=== PATIENT | male | born 1980 | race Caucasian/White ===

== ENCOUNTER 2018-07-03 13:59 | Emergency (ER) | payer SELFPAY ==
[~2018-07-03] VITALS: Ht 182.9 cm; Wt 82.6 kg
[2018-07-03 16:05] LABS: BASO % 1 % (0-3); EOS # 0.1 x10^3/uL (0.0-0.7); EOS % 1 % (0-3); HEMATOCRIT 38.7 % (39.0-53.0); HEMOGLOBIN 13.4 g/dL (13.0-17.5); LYMPH # 0.8 x10^3/uL (1.0-4.8); LYMPH % 13 % (24-48); MEAN CORPUSCULAR HEMOGLOBIN 35 pg (25-35); MEAN CORPUSCULAR HGB CONC 35 g/dL (31-37); MEAN CORPUSCULAR VOLUME 100 fL (79-100); MONO # 0.8 x10^3/uL (0.0-1.1); MONO % 12 % (0-9); NEUT # 4.8 x10^3uL (1.8-7.7); NEUT % 73 % (31-73); PLATELET COUNT 91 x10^3/uL (140-400); RED BLOOD COUNT 3.86 x10^6/uL (4.30-5.70); WHITE BLOOD COUNT 6.6 x10^3/uL (4.0-11.0)
--- NOTE | 2018-07-03 16:10 | EKG ---
[facility] [address] [place] [address] Test Date: 2018-07-03 Test Time: 15:44:50 Pat Name: SERAFIN SHOEMAKER Department: Room: Gender: M [employer]: [id number] : 1980 Requested By: RAMSEY DOHERTY Order Number: [id number] Reading MD: Ryan Romeo Measurements Intervals [place] Rate: 91 P: 71 ND: 170 QRS: 34 QRSD: 90 T: 52 QT: 320 QTc: 400 Interpretive Statements SINUS RHYTHM LEFT ATRIAL ABNORMALITY LOW LIMB LEAD VOLTAGE ABNORMAL ECG RI6.01 No previous ECG available for comparison Electronically Signed On 07-07-2018 12:00:59 CDT by Ryan Romeo
[2018-07-03 16:15] LABS: CALCIUM 10.1 mg/dL (8.5-10.1); GFR 82.8; POTASSIUM 3.8 mmol/L (3.5-5.1)
[2018-07-03 16:17] LABS: BILIRUBIN,URINE SMALL (NEG); CLARITY,URINE CLEAR; NITRITE,URINE NEGATIVE (NEG); PROTEIN,URINE 30 mg/dL (NEG-TRACE)
[2018-07-03 16:22] LABS: ALBUMIN 4.3 g/dL (3.4-5.0); ALBUMIN/GLOBULIN RATIO 1.2 (1.0-1.7); MAGNESIUM 1.7 mg/dL (1.8-2.4); TOTAL BILIRUBIN 1.4 mg/dL (0.2-1.0)
[2018-07-03 16:24] LABS: BARBITURATES NEG (NEG); BENZODIAZEPINES NEG (NEG); CANNABINOIDS NEG (NEG); COCAINE NEG (NEG); METHADONE NEG (NEG); OPIATES NEG (NEG); PHENCYCLIDINE NEG (NEG)
[2018-07-03 16:26] LABS: BACTERIA,URINE 0 /HPF (0-FEW); COLOR,URINE DK YELLOW; HYALINE CASTS, URINE OCCASIONAL /HPF; RBC,URINE 0 /HPF (0-2); SQUAMOUS EPITHELIAL CELL,UR FEW /LPF; WBC,URINE 0 /HPF (0-4)
[2018-07-03 16:27] LABS: AMPHETAMINE/METHAMPHETAMINE NEG (NEG)
--- NOTE | 2018-07-03 16:27 | RAD ---
CT head without intravenous contrast History: Seizure-like activity. Comparison: None. Technique: Axial images are obtained of the head from the skull base through the vertex without IV contrast. Exposure: One or more of the following individualized dose reduction techniques were utilized for this examination: 1. Automated exposure control 2. Adjustment of the mA and/or kV according to patient size 3. Use of iterative reconstruction technique Findings: There is motion artifact at multiple levels which could obscure subtle abnormalities. There is mild diffuse cerebral volume loss, greater than expected for patient age. No obvious intracranial mass, mass-effect, midline shift, hemorrhage or obvious acute infarction is identified. Basilar cisterns are patent. Bone windows demonstrate no acute calvarial abnormality. The visualized paranasal sinuses appear clear. Impression: 1. No acute intracranial process. Please note that CT can be relatively insensitive to acute ischemic infarction for up to 24 hours after symptom onset. 2. Mild diffuse cerebral volume loss, greater than expected for patient age. Electronically signed by: Mal Aburto MD (07/03/2018 4:24 PM) [facility]
--- NOTE | 2018-07-03 17:11 | PHYS DOC ---
Past Medical History Past Medical History: No Pertinent History Past Surgical History: Other Additional Past Surgical Histo: "food stuck in esophagus removed" Alcohol Use: Occasionally Drug Use: None Adult General Chief Complaint Chief Complaint: SEIZURE HPI HPI Patient is a 38 year old [f__sex] who presents with [] Review of Systems Review of Systems Constitutional: Denies fever or chills [] Eyes: Denies change in visual acuity, redness, or eye pain [] HENT: Denies nasal congestion or sore throat [] Respiratory: Denies cough or shortness of breath [] Cardiovascular: No additional information not addressed in HPI [] GI: Denies abdominal pain, nausea, vomiting, bloody stools or diarrhea [] : Denies dysuria or hematuria [] Musculoskeletal: Denies back pain or joint pain [] Integument: Denies rash or skin lesions [] Neurologic: Denies headache, focal weakness or sensory changes [] Endocrine: Denies polyuria or polydipsia [] All other systems were reviewed and found to be within normal limits, except as documented in this note. Current Medications Current Medications Current Medications Medications (Trade) Dose Ordered Sig/Alejandro Start Time Stop Time Status Last Admin Dose Admin Lorazepam (Ativan) 1 mg 1X ONCE 07/03/18 17:30 07/03/18 17:31 DC Multivitamins/ Minerals (I-Jessica) 1 tab DAILY 07/04/18 09:00 Sodium Chloride 1,000 ml @ 1,000 mls/hr 1X ONCE 07/03/18 17:15 07/03/18 18:14 Thiamine Mononitrate (Vitamin B-1) 100 mg DAILY 07/04/18 09:00 Allergies Allergies Allergies Coded Allergies Type Severity Reaction Last Updated Verified No Known Drug Allergies 08/07/14 No Physical Exam Physical Exam Constitutional: Well developed, well nourished, no acute distress, non-toxic appearance. [] HENT: Normocephalic, atraumatic, bilateral external ears normal, oropharynx moist, no oral exudates, nose normal. [] Eyes: PERRLA, EOMI, conjunctiva normal, no discharge. [] Neck: Normal range of motion, no tenderness, supple, no stridor. [] Cardiovascular:Heart rate regular rhythm, no murmur [] Lungs & Thorax: Bilateral breath sounds clear to auscultation [] Abdomen: Bowel sounds normal, soft, no tenderness, no masses, no pulsatile masses. [] Skin: Warm, dry, no erythema, no rash. [] Back: No tenderness, no CVA tenderness. [] Extremities: No tenderness, no cyanosis, no clubbing, ROM intact, no edema. [] Neurologic: Alert and oriented X 3, normal motor function, normal sensory function, no focal deficits noted. [] Psychologic: Affect normal, judgement normal, mood normal. [] Current Patient Data Vital Signs Vital Signs Date Time Temp Pulse Resp B/P (MAP) Pulse Ox O2 Delivery O2 Flow Rate FiO2 07/03/18 16:43 90 20 99 07/03/18 15:07 98.7 171/97 (121) Room Air 98.7 Lab Values Laboratory Tests Test 07/03/18 15:14 07/03/18 16:07 White Blood Count 6.6 x10^3/uL (4.0-11.0) Red Blood Count 3.86 x10^6/uL (4.30-5.70) L Hemoglobin 13.4 g/dL (13.0-17.5) Hematocrit 38.7 % (39.0-53.0) L Mean Corpuscular Volume 100 fL (79-100) Mean Corpuscular Hemoglobin 35 pg (25-35) Mean Corpuscular Hemoglobin Concent 35 g/dL (31-37) Red Cell Distribution Width 14.0 % (11.5-14.5) Platelet Count 91 x10^3/uL (140-400) L Neutrophils (%) (Auto) 73 % (31-73) Lymphocytes (%) (Auto) 13 % (24-48) L Monocytes (%) (Auto) 12 % (0-9) H Eosinophils (%) (Auto) 1 % (0-3) Basophils (%) (Auto) 1 % (0-3) Neutrophils # (Auto) 4.8 x10^3uL (1.8-7.7) Lymphocytes # (Auto) 0.8 x10^3/uL (1.0-4.8) L Monocytes # (Auto) 0.8 x10^3/uL (0.0-1.1) Eosinophils # (Auto) 0.1 x10^3/uL (0.0-0.7) Basophils # (Auto) 0.0 x10^3/uL (0.0-0.2) Sodium Level 137 mmol/L (136-145) Potassium Level 3.8 mmol/L (3.5-5.1) Chloride Level 97 mmol/L (98-107) L Carbon Dioxide Level 24 mmol/L (21-32) Anion Gap 16 (6-14) H Blood Urea Nitrogen 10 mg/dL (8-26) Creatinine 1.0 mg/dL (0.7-1.3) Estimated GFR (Cockcroft-Gault) 82.8 BUN/Creatinine Ratio 10 (6-20) Glucose Level 139 mg/dL (70-99) H Calcium Level 10.1 mg/dL (8.5-10.1) Magnesium Level 1.7 mg/dL (1.8-2.4) L Total Bilirubin 1.4 mg/dL (0.2-1.0) H Aspartate Amino Transferase (AST) 107 U/L (15-37) H Alanine Aminotransferase (ALT) 88 U/L (16-63) H Alkaline Phosphatase 109 U/L (46-116) Troponin I Quantitative < 0.017 ng/mL (0.000-0.055) Total Protein 8.0 g/dL (6.4-8.2) Albumin 4.3 g/dL (3.4-5.0) Albumin/Globulin Ratio 1.2 (1.0-1.7) Ethyl Alcohol Level < 10 mg/dL (0-10) Urine Collection Type Unknown Urine Color Dk yellow Urine Clarity Clear Urine pH 6.0 Urine Specific [place] 1.020 Urine Protein 30 mg/dL (NEG-TRACE) Urine Glucose (UA) 100 mg/dL (NEG) Urine Ketones (Stick) 40 mg/dL (NEG) Urine Blood Negative (NEG) Urine Nitrite Negative (NEG) Urine Bilirubin Small (NEG) Urine Urobilinogen Dipstick 1.0 mg/dL (0.2 mg/dL) Urine Leukocyte Esterase Negative (NEG) Urine RBC 0 /HPF (0-2) Urine WBC 0 /HPF (0-4) Urine Squamous Epithelial Cells Few /LPF Urine Bacteria 0 /HPF (0-FEW) Urine Hyaline Casts Occasional /HPF Urine Mucus Mod /LPF Urine Opiates Screen Neg (NEG) Urine Methadone Screen Neg (NEG) Urine Barbiturates Neg (NEG) Urine Phencyclidine Screen Neg (NEG) Urine Amphetamine/Methamphetamine Neg (NEG) Urine Benzodiazepines Screen Neg (NEG) Urine Cocaine Screen Neg (NEG) Urine Cannabinoids Screen Neg (NEG) Urine Ethyl Alcohol Pos (NEG) Laboratory Tests 07/03/18 15:14 Laboratory Tests 07/03/18 15:14 EKG EKG [] Radiology/Procedures Radiology/Procedures PROCEDURE: CT HEAD WO CONTRAST CT head without intravenous contrast History: Seizure-like activity. Comparison: None. Technique: Axial images are obtained of the head from the skull base through the vertex without IV contrast. Exposure: One or more of the following individualized dose reduction techniques were utilized for this examination: 1. Automated exposure control 2. Adjustment of the mA and/or kV according to patient size 3. Use of iterative reconstruction technique Findings: There is motion artifact at multiple levels which could obscure subtle abnormalities. There is mild diffuse cerebral volume loss, greater than expected for patient age. No obvious intracranial mass, mass-effect, midline shift, hemorrhage or obvious acute infarction is identified. Basilar cisterns are patent. Bone windows demonstrate no acute calvarial abnormality. The visualized paranasal sinuses appear clear. Impression: 1. No acute intracranial process. Please note that CT can be relatively insensitive to acute ischemic infarction for up to 24 hours after symptom onset. 2. Mild diffuse cerebral volume loss, greater than expected for patient age. Electronically signed by: Mal Aburto MD (07/03/2018 4:24 PM) [facility] DICTATED and SIGNED BY: MAL ABURTO MD DATE: 07/03/18 1623 Course & Med Decision Making Course & Med Decision Making Pertinent Labs and Imaging studies reviewed. (See chart for details) 1720: In-depth conversation had with patient and his father regarding test results. No acute findings on head CT. Discussed elevated LFTs and patient's heavy drinking history. Offered admission for further monitoring with uncertainty if pt had seizure vs syncope episode. Pt is A&Ox3 and neuro intact with no complaints- visibly he has some tremors but he reports that is NL for him. After discussion pt is requesting home discharge- will provide PO thiamine and multi vitamin with IV fld bolus/dose of Ativan. Will provide pt with outpt options for detox. Dragon Disclaimer Dragon Disclaimer This electronic medical record was generated, in whole or in part, using a voice recognition dictation system. Departure Departure Impression: Primary Impression: Episode of syncope Additional Impression: Alcohol abuse Disposition: 01 HOME, SELF-CARE Condition: STABLE Referrals: EFFIE DAWKINS MD (PCP) Patient Instructions: Alcohol Problems, Syncope Additional Instructions: You need to stop drinking as your lab results showed elevated liver enzymes and it is uncertain if today's episode was possibly a seizure or syncope. You should drink plenty of water and eat well balanced meals. You need to have your liver enzymes rechecked in next 3-5 days with primary doctor. With any concerns or symptoms return to Emergency Department. Problem Qualifiers RAMSEY DOHERTY APRN Jul 03, 2018 17:10
[2018-07-03] MEDS: IV NORMAL SALINE 1000ML BAG 1,000 ML IV ONE (17:15)
[2018-07-03] MEDS ORDERED: THIAMINE 100 MG TABLET. PO SCH (18:00)
[2018-07-03] MEDS: THIAMINE 100 MG TABLET. PO ONE (18:00)
[2018-07-03] MEDS: MULTIVITAMIN I-VITE TABLET. PO ONE (18:00)
[2018-07-03] MEDS ORDERED: MULTIVITAMIN I-VITE TABLET. PO SCH (18:00)
[2018-07-03 18:09] VITALS: BP 154/92
== END 2018-07-03 19:58 | disposition home or self-care (01) ==
LOC: ER 13:59
DX: F10.10 Alcohol abuse, uncomplicated (principal); R55 Syncope and collapse; Y90.0 Blood alcohol level of less than 20 mg/100 ml
CPT/HCPCS: 36415; 70450; 80053; 80307; 81001; 83735; 84484; 85025; 93005; 96361; 96374; 99285; G0480; J2060; J7030; G0479

== ENCOUNTER 2019-11-25 18:04 | Emergency (ER) | payer SELFPAY ==
[~2019-11-25] VITALS: Ht 182.9 cm; Wt 75.0 kg
[2019-11-25] MEDS ORDERED: GLUCAGON,HUMAN RECOMBINANT 1 MG/ML VIAL. IV ONE (20:00)
[2019-11-25 20:30] VITALS: BP 128/90
--- NOTE | 2019-11-25 20:38 | PHYS DOC ---
Past Medical History Past Medical History: Other Additional Past Medical Histor: food bolus (YOSSI NO APRN) Past Surgical History: Other Additional Past Surgical Histo: "food stuck in esophagus removed" (YOSSI NO APRN) Smoking Status: Current Every Day Smoker Alcohol Use: Heavy Drug Use: None (YOSSI NO APRN) Attending Signature I have participated in the care of this patient and I have reviewed and agree with all pertinent clinical information above including history, exam, and recommendations. (JEREMY WARE MD) Adult General Chief Complaint Chief Complaint: OTHER COMPLAINTS HPI HPI Patient is a 39 year old male, who presents to the emergency department with complaints of having a piece of chicken stuck in his throat. Patient states that at approximately 1730 this evening he was eating dinner when he a piece of chicken became stuck in his throat. Patient states this has happened one time previously about 5 years ago, he had to have his esophagus stretched at that time. He denies any nausea, vomiting, diarrhea, abdominal pain, chest pain, sh ortness of breath, wheezing, or stridor. Patient states he has been unable to swallow anything, even his saliva, since eating the chicken. He currently rates his pain a 5 out of 10 on the pain scale, he denies any alleviating or exacerbating factors. (YOSSI NO APRN) Review of Systems Review of Systems Complete ROS is negative unless otherwise noted in HPI. (YOSSI NO APRN) Current Medications Current Medications Current Medications Medications (Trade) Dose Ordered Sig/Alejandro Start Time Stop Time Status Last Admin Dose Admin Glucagon (Glucagen) 1 mg 1X ONCE 11/25/19 20:00 11/25/19 20:18 DC 11/25/19 20:05 1 MG (JEREMY WARE MD) Allergies Allergies Allergies Coded Allergies Type Severity Reaction Last Updated Verified No Known Drug Allergies 08/07/14 No (JEREMY WARE MD) Physical Exam Physical Exam See Above Constitutional: Well developed, well nourished, no acute distress, non-toxic appearance. [] HENT: Normocephalic, atraumatic, bilateral external ears normal, oropharynx moist, no oral exudates, nose normal. [] Eyes: PERRLA, EOMI, conjunctiva normal, no discharge. [] Neck: Normal range of motion, no tenderness, supple, no stridor. [] Cardiovascular:Heart rate regular rhythm, no murmur [] Lungs & Thorax: Bilateral breath sounds clear to auscultation, Respirations even and unlabored, no retractions, no respiratory distress [] Skin: Warm, dry, no erythema, no rash. [] Extremities: No cyanosis, no clubbing, ROM intact, no edema. [] Neurologic: Alert and oriented X 3, no focal deficits noted. [] Psychologic: Affect normal, judgement normal, mood normal. [] (YOSSI NO APRN) Current Patient Data Vital Signs Vital Signs Date Time Temp Pulse Resp B/P (MAP) Pulse Ox O2 Delivery O2 Flow Rate FiO2 11/25/19 20:30 88 16 128/90 (103) 97 Room Air 11/25/19 19:15 97.6 97.6 (JEREMY WARE MD) EKG EKG [] (YOSSI NO APRN) Radiology/Procedures Radiology/Procedures [] (YOSSI NO APRN) Course & Med Decision Making Course & Med Decision Making Pertinent Labs and Imaging studies reviewed. (See chart for details) Patient is a 39-year-old male who presented to the emergency room with complaints of having chicken stuck in his throat. He was given 1 mg of glucagon IV and some soda. He was able to swallow the chicken after these medications. Patient was given a glass of water after he reported relief of the food bolus. He drinks of water without any difficulty. The patient was instructed to be sure to chew all of his food thoroughly and to follow up with GI, Dr. Griffin, as he may need to have his esophagus stretched again. Patient verbalized an understanding of home care, medications, follow-up, and return to ED instructions and was in agreement with the plan of care. [] (YOSSI NO APRN) Dragon Disclaimer Dragon Disclaimer This electronic medical record was generated, in whole or in part, using a voice recognition dictation system. (YOSSI NO APRN) Departure Departure Impression: Primary Impression: Food impaction of esophagus Disposition: HOME, SELF-CARE Condition: STABLE Referrals: EFFIE DAWKINS MD (PCP) Patient Instructions: Esophageal Stricture Additional Instructions: Be sure to chew all of your food well. Follow up with Dr. Griffin for evaluation of your esophagus, you may need to have it stretched. Return to the ER if symptoms worsen. Problem Qualifiers Primary Impression: Food impaction of esophagus Encounter type: initial encounter Qualified Codes: T18.128A - Food in esophagus causing other injury, initial encounter YOSSI NO APRN Nov 25, 2019 20:38 JEREMY WARE MD Nov 26, 2019 00:16
== END 2019-11-25 20:57 | disposition home or self-care (01) ==
LOC: ER 18:04
DX: T18.128A Food in esophagus causing other injury, initial encounter (principal); F17.200 Nicotine dependence, unspecified, uncomplicated; F10.20 Alcohol dependence, uncomplicated; Y90.9 Presence of alcohol in blood, level not specified; X58.XXXA Exposure to other specified factors, initial encounter; Y93.89 Activity, other specified; Y92.89 Other specified places as the place of occurrence of the external cause; Y99.8 Other external cause status
CPT/HCPCS: 96374; 99283; J1610